=== PATIENT | male | born 1975 | race Caucasian/White ===

== ENCOUNTER 2022-06-16 05:34 | Emergency (ER) | payer OTHER ==
[~2022-06-16] VITALS: Ht 177.8 cm; Wt 79.4 kg
== END 2022-06-16 06:35 | disposition home or self-care (01) ==
LOC: ER 05:34
DX: S20.212A Contusion of left front wall of thorax, initial encounter (principal); S29.011A Strain of muscle and tendon of front wall of thorax, initial encounter; X58.XXXA Exposure to other specified factors, initial encounter
CPT/HCPCS: 93005; 93010

== ENCOUNTER → 2022-07-02 | Outpatient (CLI) | payer OTHER | END | disposition home or self-care (01) | LOC: PLD 10:37 → LAB SHORT 10:37 | DX: L28.1 Prurigo nodularis (principal) | CPT/HCPCS: 88305; 88312 ==